=== PATIENT | female | born 1995 | race Caucasian/White ===

== ENCOUNTER 2017-07-31 13:48 | Inpatient (IN) | payer OTHER ==
[2017-07-31] MEDS ORDERED: FENTANYL 100MCG/2ML SOL IV PRN (14:54)
[2017-07-31] MEDS ORDERED: OXYTOCIN 10000 MU/ML SOL IM PRN (14:54)
[2017-07-31] MEDS ORDERED: MEPIVACAINE HCL 1% MPF 30 ML/VIAL SOL INFIL PRN (14:54)
[2017-07-31] MEDS ORDERED: CARBOPROST 250 MCG/ML SOL IM PRN (14:54)
[2017-07-31] MEDS ORDERED: SODIUM CHLORIDE 0.9% FLUSH 10 ML SOL IV PRN (14:54)
[2017-07-31] MEDS ORDERED: METHYLERGONOVINE MALEATE 0.2 MG/ML SOL IM PRN (14:54)
[2017-07-31] MEDS ORDERED: LACTATED RINGERS 1,000 ML IV PRN (14:54)
[2017-07-31 15:22] LABS: BASOPHILS % (AUTO) 1 % (0-3); EOSINOPHILS % (AUTO) 1 % (0-9); HEMATOCRIT 32 % (35-47); HEMOGLOBIN 10.7 gm/dl (12.0-15.5); LYMPHOCYTES % (AUTO) 15.4 % (10-50); MEAN CORPUSCULAR HEMOGLOBIN 28.3 pg (27.0-32.0); MEAN CORPUSCULAR VOLUME 83 fL (81-99); MONOCYTES % (AUTO) 12.5 % (0-12); NEUTROPHILS % (AUTO) 70.2 % (37-80)
[2017-07-31] MEDS: SODIUM CHLORIDE 0.9% FLUSH 10 ML SOL IV SCH (17:36)
[2017-07-31] MEDS ORDERED: TERBUTALINE SULFATE 1 MG/ML SOL SC PRN (18:02)
[2017-07-31] MEDS ORDERED: OXYTOCIN 10000 MU/ML SOL ONE (18:28)
[2017-07-31] MEDS ORDERED: LACTATED RINGERS 1,000 ML ONE (18:28)
[2017-07-31] MEDS: LACTATED RINGERS 1,000 ML IV SCH (18:43)
[2017-07-31] MEDS: OXYTOCIN 10000 MU/ML 20,000 MU in LACTATED RINGERS 1,000 ML IV SCH (18:44)
[2017-08-01] MEDS: SODIUM CHLORIDE 0.9% FLUSH 10 ML SOL IV SCH ×2 (07:17→16:39)
[2017-08-01] MEDS ORDERED: AMPICILLIN 1 GM PDS 2 GM in SODIUM CHLORIDE 0.9% 100 ML 100 ML IV SCH (08:45)
[2017-08-01] MEDS ORDERED: AMPICILLIN 1 GM PDS ONE ×3 (08:54→16:48)
[2017-08-01] MEDS: AMPICILLIN 1 GM PDS 1 GM in SODIUM CHLORIDE 0.9% 100 ML 100 ML IV SCH ×2 (12:53→17:01)
[2017-08-01] MEDS ORDERED: EPHEDRINE SULFATE 50 MG/ML SOL IV PRN (14:34)
[2017-08-01] MEDS ORDERED: DIPHENHYDRAMINE 50 MG/ML SOL IV PRN (14:34)
[2017-08-01] MEDS ORDERED: NALBUPHINE HCL 20 MG/ML SOL IV PRN (14:34)
[2017-08-01] MEDS ORDERED: NALOXONE HYDROCHLORIDE 0.4 MG/ML SOL IV PRN (14:34)
[2017-08-01] MEDS ORDERED: LACTATED RINGERS 1,000 ML IV SCH (14:45)
[2017-08-01] MEDS ORDERED: LIDOCAINE HCL 2% MPF 10 ML SOL ONE (14:57)
[2017-08-01] MEDS: LACTATED RINGERS 1,000 ML IV SCH ×2 (15:22→17:04)
[2017-08-01] MEDS ORDERED: FENTANYL 250 MCG/ 5ML SOL ONE (15:32)
[2017-08-01] MEDS ORDERED: ROPIVACAINE HYDROCHLORIDE 5 MG/ML SOL ONE (15:32)
[2017-08-01] MEDS ORDERED: LACTATED RINGERS 1,000 ML ONE (16:23)
[2017-08-01] MEDS ORDERED: OXYTOCIN 10000 MU/ML SOL ONE (16:23)
[2017-08-01] MEDS: OXYTOCIN 10000 MU/ML 20,000 MU in LACTATED RINGERS 1,000 ML IV SCH (16:41)
[2017-08-01] MEDS ORDERED: BISACODYL 10 MG SUP PR PRN (19:00)
[2017-08-01] MEDS ORDERED: TEMAZEPAM 15MG 15 MG CAP PO PRN (19:00)
[2017-08-01] MEDS ORDERED: FLEET ENEMA PR PRN (19:00)
[2017-08-01] MEDS ORDERED: METHYLERGONOVINE MALEATE 0.2 MG TAB PO PRN (19:00)
[2017-08-01] MEDS ORDERED: BENZOCAINE/MENTHOL 1 SPR TOP PRN (19:00)
[2017-08-01] MEDS ORDERED: WITCH HAZEL 1 EA PAD TOP PRN (19:00)
[2017-08-01] MEDS: DOCUSATE SODIUM 100 MG SGL PO SCH (21:52)
[2017-08-01] MEDS: IBUPROFEN 600 MG TAB PO PRN (21:52)
[2017-08-02] MEDS: APAP/HYDROCODONE 325/5 TAB PO PRN ×4 (02:01→22:32)
[2017-08-02] MEDS: IBUPROFEN 600 MG TAB PO PRN ×2 (05:13→12:21)
[2017-08-02] MEDS: SODIUM CHLORIDE 0.9% FLUSH 10 ML SOL IV SCH (07:54)
[2017-08-02] MEDS: LACTATED RINGERS 1,000 ML IV SCH (07:54)
[2017-08-02] MEDS ORDERED: FLUOXETINE HYDROCHLORIDE 10 MG CAP ONE (09:05)
[2017-08-02] MEDS: FERROUS GLUCONATE 324 MG TABLET PO SCH (09:07)
[2017-08-02] MEDS: DOCUSATE SODIUM 100 MG SGL PO SCH ×2 (09:07→20:04)
[2017-08-02] MEDS: FLUOXETINE HYDROCHLORIDE 10 MG CAP PO SCH (09:08)
[2017-08-02] MEDS: MULTIVITAMIN2 1 EA TAB PO SCH (09:08)
[2017-08-02] MEDS: FOLIC ACID 1 MG TAB PO SCH (09:08)
[2017-08-03] MEDS: APAP/HYDROCODONE 325/5 TAB PO PRN (04:11)
[2017-08-03 04:23] VITALS: O2SAT 97
[2017-08-03] MEDS: IBUPROFEN 600 MG TAB PO PRN (06:03)
[2017-08-03] MEDS: FERROUS GLUCONATE 324 MG TABLET PO SCH (08:31)
[2017-08-03] MEDS: FOLIC ACID 1 MG TAB PO SCH (08:31)
[2017-08-03] MEDS: DOCUSATE SODIUM 100 MG SGL PO SCH (08:31)
[2017-08-03] MEDS: MULTIVITAMIN2 1 EA TAB PO SCH (08:31)
[2017-08-03] MEDS ORDERED: FLUOXETINE HYDROCHLORIDE 10 MG CAP ONE (08:32)
[2017-08-03] MEDS: FLUOXETINE HYDROCHLORIDE 10 MG CAP PO SCH (08:36)
[2017-08-03 11:28] VITALS: BP 126/78; PULSE 76; RESP 16; TEMP 97.6
== END 2017-08-03 11:00 | disposition home or self-care (01) | DRG 775 ==
LOC: OBSVTOIN 13:48 → OB 13:48
PROVIDERS: ADMIT Family Medicine; ATTEND Family Medicine
PROC: 10E0XZZ Delivery of Products of Conception, External Approach (ICD-10-PCS; principal; 2017-08-01)
PROC: 3E04329 Introduction of Other Anti-infective into Central Vein, Percutaneous Approach (ICD-10-PCS; 2017-08-01)
DX: O80 Encounter for full-term uncomplicated delivery (principal); Z37.0 Single live birth; Z3A.40 40 weeks gestation of pregnancy
CPT/HCPCS: 36415; 59025; 84112; 85018; 85025; 99070; J0290; J0670; J2590; J2795; J3010; A9270-GY